=== PATIENT | male | born 1975 | race Caucasian/White ===

== ENCOUNTER 2020-08-25 09:50 | Outpatient (REF) | payer MEDICARE, MEDICAID, OTHER, SELFPAY ==
--- NOTE | 2020-08-25 | US_ITS ---
EXAMINATION: US ABDOMEN COMPLETE CLINICAL INFORMATION: Fatty liver. COMPARISON: Ultrasound abdomen complete 08/08/2017. Renal ultrasound 03/13/2013. TECHNIQUE: Real-time imaging of the abdominal viscera. FINDINGS: PANCREAS: Slightly heterogenous echotexture with no focal enlargement or mass seen. ABDOMINAL AORTA: The proximal, mid, and distal segments are normal in caliber. INFERIOR VENA CAVA: Visualized portions are normal. LIVER: There is mild increased liver echogenicity but normal size and normal contour. There are areas of focal fatty sparing. No focal hepatic lesion. There is no intrahepatic biliary duct dilatation seen. GALLBLADDER: Gallbladder wall thickness measures 0.5 cm. The gallbladder is contracted. Multiple mobile gallstones and echogenic bile are present. There are echogenic calcifications within the gallbladder wall. No evidence of pericholecystic fluid. COMMON BILE DUCT: Normal in caliber measuring 0.3 cm in diameter. RIGHT KIDNEY: Normal. No hydronephrosis. No renal calculi or focal parenchymal lesions. The kidney measures 12.4 cm in maximum dimension. LEFT KIDNEY: Normal. No hydronephrosis. No renal calculi or focal parenchymal lesions. The kidney measures 12.5 cm in maximum dimension. SPLEEN: Normal. The spleen measures 10.7 cm in maximum dimension. FREE FLUID: None. US/US abdomen complete IMPRESSION: 1. The gallbladder is contracted with echogenic stones and mild wall thickening. There are multiple calcifications seen in the gallbladder wall. Similar findings were seen on the previous ultrasound abdomen exam 08/08/2017. 2. Mild hepatic steatosis with areas of focal fatty sparing. 3. The rest of the abdominal ultrasound is unremarkable.
[2020-08-25 11:25] LABS: Hematocrit 44.9 % (42-52); Hemoglobin 15.4 g/dl (14.0-18.0); Mean Corpuscular HGB Conc 34.3 g/dl (31.0-36.0); Mean Corpuscular Hemoglobin 30.7 pg (27.0-33.0); Mean Corpuscular Volume 89.6 fL (80-98); Mean Platelet Volume 11.3 fL (9.4-12.4); Platelet Count 234 X10*3/uL (160-400); Red Blood Count 5.01 X10*6/uL (4.60-5.80); Red Cell Distribution Width 12.4 % (11.0-16.0); White Blood Count 9.9 X10*3/uL (4.8-10.8)
[2020-08-25 11:54] LABS: Alanine Aminotransferase 62 U/L (0-40); Albumin Level 4.9 g/dL (3.5-5.0); Alkaline Phosphatase 58 U/L (39-117); Anion Gap 13 (12-20); Aspartate Amino Transferase 61 U/L (5-37); Bilirubin Direct 0.3 mg/dL (0.0-0.5); Bilirubin Total 0.9 mg/dL (0.0-1.0); Blood Urea Nitrogen 24 mg/dL (9-16); Calcium 9.6 mg/dL (8.4-10.2); Carbon Dioxide 27 mmol/L (22-29); Chloride 102 mmol/L (96-108); Cholesterol 228 mg/dL; Estimated Glomerular Filt Rate > 60; Glucose Fasting 111 mg/dL (60-99); HDL Cholesterol 35 mg/dL; LDL Cholesterol Calculated 142 mg/dl; Potassium 4.3 mmol/l (3.3-5.1); Sodium 138 mmol/L (135-145); Triglycerides 257 mg/dL
[2020-08-25 12:04] LABS: ~HepC Num1 0.08 S/CO (0.00-0.79); ~Hepatitis C Antibody Nonreactive (Nonreactive)
[2020-08-25 12:06] LABS: HBS Num1 2.11 mIU/mL (0-7.99); HBsAGNum1 0.19 S/CO (0.00-0.99); HIV AB/AG Nonreactive (Nonreactive); Hepatitis B Surface Antigen Negative (Negative); ~HepC Num1 0.07 S/CO (0.00-0.79); ~Hepatitis B Surface Antibody NONREACTIVE (Nonreactive); ~Hepatitis C Antibody Nonreactive (Nonreactive)
[2020-08-25 12:08] LABS: Free T4 (Free Thyroxine) 0.98 ng/dL (0.71-1.85); Thyroid Stimulating Hormone 1.02 uIU/mL (0.32-4.0); Vitamin D 25-OH Total 79.5 ng/mL (>30)
[2020-08-25 12:09] LABS: Estimated Average Glucose 108 mg/dL; Hemoglobin A1c % 5.4 %
[2020-08-25 12:10] LABS: Syphilis Screen Nonreactive (Nonreactive)
[2020-08-27 10:57] LABS: Alpha Fetoprotein 2.2 ng/mL (<6.1)
== END 2020-08-25 09:51 | disposition home or self-care (01) ==
LOC: HO.HMGCX 09:50
PROVIDERS: PCP Family Medicine; Visit Provider Family Medicine
DX: Z01.84 Encounter for antibody response examination (principal); Z11.3 Encounter for screening for infections with a predominantly sexual mode of transmission; Z11.4 Encounter for screening for human immunodeficiency virus [HIV]; K58.9 Irritable bowel syndrome, unspecified; K76.0 Fatty (change of) liver, not elsewhere classified
CPT/HCPCS: 36415; 76700; 80048; 80061; 80076; 82105; 82306; 83036; 84439; 84443; 85027; 86706; 86780; 86803; 87340; 87389

== ENCOUNTER 2020-10-11 14:23 | Outpatient (REF) | payer MEDICARE, MEDICAID, OTHER, SELFPAY ==
[2020-10-13 09:02] LABS: C. trachomatis RNA TMA NOT DETECTED (NOT DETECTED); N. gonorrhoeae RNA TMA NOT DETECTED (NOT DETECTED)
== END 2020-10-11 14:24 | disposition home or self-care (01) ==
LOC: HO.LNP 14:23
PROVIDERS: Visit Provider Family Medicine
DX: Z11.3 Encounter for screening for infections with a predominantly sexual mode of transmission (principal); Z68.41 Body mass index [BMI] 40.0-44.9, adult
CPT/HCPCS: 87491; 87591

== ENCOUNTER 2022-07-13 14:00 | Outpatient (RCR) | payer MEDICARE, MEDICAID, OTHER, SELFPAY ==
--- NOTE | 2022-07-25 07:47 | HO.PHPIOP ---
On 07/14/2022,this mortgage loan underwriter met with Pt for an intake assessment for [facility],it was determined that the Pt was not appropriate for [facility] level of care at this time,Pt stated he doesn't want to be here and that he was planning to go up to [place] to see his former spouse. This mortgage loan underwriter walked Pt out of the building. this mortgage loan underwriter was informed that PT returned and was sitting inside the building,his niece was also present,the Pt was becoming aggressive and stated that he was at a bar prior to coming to [facility]. The [facility] program nurse and prescriber intervened recommending that Pt go to the ED at [facility] for a psychiatric evaluation, this mortgage loan underwriter contacted security to inform them that this individual may be going to the ED and of his behavior. This mortgage loan underwriter was informed that the Pt ran into the [facility],this was the last contact [facility] had with this Pt.
== END 2022-07-14 23:59 | disposition home or self-care (01) ==
LOC: HO.PHPA 14:00
PROVIDERS: Visit Provider Psychiatry & Neurology Psychiatry
DX: F31.9 Bipolar disorder, unspecified (principal)

== ENCOUNTER 2022-07-23 10:16 | Emergency (ER) | payer MEDICARE, MEDICAID, OTHER, SELFPAY ==
--- NOTE | 2022-07-23 10:26 | PC.NURSE ---
SIGNED IN AND IMMEDIATELY LEFT AND WALKED DOWN THE STREET, BROTHER REPORTS SEVERAL WEEKS OF YVETTE, HX OF THE SAME IN PAST YEARS, DENIES CURRENT SI/HI BUT CONCERNED FOR HIS SAFETY, BROTHER ENCOURAGED TO CONVINCE HIM TO COME BACK AND IF HE CANNOT THEN TO CALL [facility]
--- OUTSIDE RECORDS SUMMARY | 2022-07-23 10:58 | XMS_ITS ---
:1975 Author Organization [facility] Address [address] [place] [address] Care Team Providers Name Role Phone Kei Thakkar Unavailable Unavailable PROBLEMS Type Condition ICD9-CM Code ESZ65-XC Code Onset Condition SNO MED Code Dates Status Problem Diarrhea R19.7 Active 09074596 Problem Gallstones K80.20 Active 355771763 Problem Elevated liver R74.8 Active 40245 4006 enzymes ALLERGIES No Known Allergies ENCOUNTERS Encounter Location Date Diagnosis [place] [address], [facility] [address] [place] [phone] [place] [address], [facility] [address] [place] [phone] [place] [address], Di arrhea R19.7 ; [facility] [address] [place], [place] Gallstones K80.2 0 and [phone] Elevated liver e nzymes R74.[address] [place] [address], [facility] [address] [place] [phone] IMMUNIZATIONS No Known Immunizations SOCIAL HISTORY Qualifiers Date Current Smoker REASON FOR REFERRAL FUNCTIONAL STATUS PLAN OF CARE Activity Details Follow Up prn Reason: Pending Test LIVER PROFILE Pending Test IRON + IBC (FE) Pending Test FERRITIN Pending Test CRP Pending Test CBC w DIFF Pending Test SED RATE (ESR) Pending Test STOOL WBC Pending Test [id number] (A1A) Pending Test CERULOPLASMIN Pending Test CELIAC PANEL #10 Pending Test MITOCHONDRIAL AB Pending Test SMOOTH MUSCLE ANTIBODIES Pending Test FLUOR. ANTINUCLEAR AB SCREEN (ALKA) Pending Test CALPROTECTIN, STOOL Future/Pending Procedure COLONOSCOPY 20201020 VITAL SIGNS Weight 217 lbs 2020-10-20 Height 61 in 2020-10-20 BMI 41.00 kg/m2 2020-10-20 Temperature 97.5 degrees Fahrenheit 2020-10-20 Blood pressure systolic 000 mm Hg 2020-10-20 Blood pressure diastolic 00 mm Hg 2020-10-20 MEDICATIONS Medication Instructions Dosage Frequency Start Date End Date Duration S tatus Magnesium Active Tylenol Active Vitamin C Active Vitamin D Active clonazePAM Active Iodine Active Cod Liver Oil Active PROCEDURES Procedure Date Ordered Result Body Site BP SCR PRFRM RCMDD DEFIND SCR INTVL Oct 20, 2020 TOBACCO NON-USER Oct 20, 2020 DOC MEDS VERIFIED W/PT OR RE Oct 20, 2020 RESULTS No Results REASON FOR VISIT diarrhea, cancelled procedure, COVID QUES. Insurance Providers [facility] Health Member Patient Patient Patient Patient Patient Subscriber Subscriber Subscriber Group Insurance Plan Plan Plan Plan ID Relationship Address Phone Name Date of ID Name Date of No Type Insurance Insurance Insurance Coverage to Subscriber Address Phone Name Dates MEDICAID [address] MEDICAID self NATHANIE 101 [id number] OF [place] [id number] OF [place] [facility] [address] [facility] [address] MEDICARE [address] MEDICARE self NATHANIE 101 [id number] OF [place] [address] OF [place] Kristyn [facility] [id number]
== END 2022-07-23 11:04 | disposition left against medical advice (07) ==
PROVIDERS: Emergency Provider Emergency Medicine; PCP Family Medicine
DX: Z91.14 Patient's other noncompliance with medication regimen (principal)

== ENCOUNTER 2022-10-10 02:14 | Emergency (ER) | payer MEDICARE, MEDICAID, OTHER, SELFPAY ==
--- NOTE | ~2022-10-10 | XR_ITS ---
EXAMINATION: XR RIBS, RIGHT CLINICAL INFORMATION: Fall onto right side. Chest pain. COMPARISON: 06/05/2018 TECHNIQUE: 3 views of the right ribs were obtained. PA view of the chest. FINDINGS: Lungs are clear. No consolidation, pneumothorax, or pleural effusion. The cardiomediastinal silhouette and pulmonary vasculature are normal. Osseous structures are unremarkable. Ribs are intact. No fractures are identified. XR/XR ribs RT min 3V w CXR1V IMPRESSION: Clear lungs. No focal right rib abnormality.
[2022-10-10 02:22] VITALS: BP 149/84; PULSE 97; RESP 18; TEMP 36.6; O2SAT 98; BMI 52.0
[2022-10-10] MEDS: Fluorescein Sodium STRIP 1 STRIP EYE-BOTH (02:45)
--- NOTE | 2022-10-10 03:06 | ED.EYEPROB ---
HPI - Eye Problem General Chief complaint: Eye Problems Stated complaint: eye pain Time Seen by Provider: 10/10/22 02:32 Source: patient Mode of arrival: ambulatory Limitations: no limitations History of Present Illness HPI Narrative: 47-year-old male came in for evaluation of left eye pain and redness with discharge since yesterday. Patient stated that he has been using a new lotion apply to his face and he think that he might contracted a chemical irritation of his both eyes and causing his symptoms. Patient stated that a month ago he had a mechanical fall hurting his right side of his chest it has been having right-sided chest pain on and off feels like a spasm. No SOB, no coughing. Related Data Previous Rx's Medication Instructions Recorded amoxicillin 875 mg-potassium 1 tab PO BID #14 tabs 10/10/22 clavulanate 125 mg tablet cyclobenzaprine 10 mg tablet 10 mg PO TID PRN muscle spasm #14 10/10/22 tabs erythromycin 5 mg/gram (0.5 %) eye 0.5 inch ophthalmic (eye) QID #50 10/10/22 ointment grams Allergies Allergy/AdvReac Type Severity Reaction Status Date / Time chlorpromazine Allergy Severe RASH Unverified 06/17/20 15:17 [From THORAZINE] risperidone [From Risperdal] Allergy Severe ANAPHYLAXIS Unverified 06/17/20 15:17 diphenhydramine AdvReac Unknown SPACY Unverified 06/17/20 15:17 [From BENADRYL] Review of Systems Review of Systems: All other systems are reviewed and are negative Constitutional: Reports as per HPI and Reports no additional constitutional complaints Eyes: Reports as per HPI and Reports no additional eye complaints Reports system reviewed and no additional complaints, except as documented Cardiovascular: Reports as per HPI and Reports no additional cardiovascular complaints Respiratory: Reports as per HPI and Reports no additional respiratory complaints Gastrointestinal: Reports as per HPI and Reports no additional gastrointestinal complaints Genitourinary: Reports no additional female genitourinary complaints Musculoskeletal: Reports no additional musculoskeletal complaints Skin/Breast: Reports system reviewed and no additional complaints, except as docu Psychiatric: Reports no additional psychiatric complaints Endocrine: Reports no additional endocrine complaints Hematologic/Lymphatic: Reports no additional hematologic/lymphatic complaints Allergic/Immunologic: Reports no additional allergic/immunologic complaints Reports system reviewed and no additional complaints, except as documented and Reports Abnormal speech present PMFSH Past Medical History Medical History Anxiety Fatty liver Hx of diarrhea Hx of gallstones Hypertension Salivary gland cancer Surgical History H/O myringotomy Physical Exam Vital Signs: Vital Signs: Last Vital Signs Temp 97.8 F 10/10/22 02:22 Pulse 97 10/10/22 02:22 Resp 18 10/10/22 02:22 BP 149/84 H 10/10/22 02:22 Pulse Ox 98 10/10/22 02:22 O2 Del Method 10/10/22 02:22 BMI result Body Mass Index 52.0 Vital signs have been reviewed as appeared to be correct. Blood pressure normal. Heart rate normal. Respiration rate normal. Temperature normal. Oxygen saturation normal. Appearance: Alert. Oriented X3. No acute distress. Head: Normal external exam. Normocephalic. Atraumatic. No [place] signs noted. No raccoon eyes noted Eyes: Visual acuity 20/25 right, 20/25 left, PERRLA. EOMI. Swelling of upper and lower eyelid bilaterally left more than right, with significant conjunctiva injection and swelling bilaterally, no corneal or scleral fluorescein uptake bilaterally, IOP right 18 in left 19. ENT: TM's Normal. Pharynx normal. Uvula midline. Moist mucous membranes. No trismus noted. No drooling noted. No muffled voice noted. Neck: Normal inspection. Neck supple. FROM. No adenopathy. Thyroid Normal. No meningeal signs. No neck mass noted. CVS: Normal heart rate and rhythm. Heart sound normal. No murmurs noted. Pulses normal throughout. Respiratory: No respiratory distress. Painless inspiration. Breath sounds normal. No wheezes/rales/rhonchi noted. Chest nontender. No accessory muscle usage noted or decreased air movement noted. Abdomen: Soft and nontender. Bowel sounds normal in all 4 quadrants. No distention noted. No organomegaly noted. No visible injury noted. Back: No CVA tenderness. Full range of motion noted. Skin: Skin warm and dry. Normal skin color. Normal skin turgor. No rashes/lesions/lacerations noted. Extremities: No lower extremity edema. Extremities exhibit normal range of motion. Extremities nontender. Neuro: Oriented X 3. Cranial nerve exam: II-XII are grossly intact No motor deficit. No sensory deficit. Reflexes normal. Course Course Course Narrative: 47-year-old male presented with bilateral chemical conjunctivitis with blepharitis likely secondary to new lotion that the patient using on his face patient was instructed not to use the lotion. Will start the patient on erythromycin eye ointment and also will give oral Augmentin for the blepharitis. A previous mechanical fall with right-sided chest pain no evidence of trauma or injury on x-ray. Will start the patient on Flexeril. Medications Administered Discontinued Medications Generic Name Dose Route Start Last Admin Trade Name Freq PRN Reason Stop Dose Admin Fluorescein Sodium 1 strip 10/10/22 02:32 10/10/22 02:45 Fluorescein Sodium Strip EYE-BOTH 10/10/22 02:33 1 strip ONCE ONE Administration Medical Decision Making Differential Diagnosis Differential Diagnoses: The differential diagnosis associated with the presentation includes ( bacterial conjunctivitis, chemical conjunctivitis, foreign body, corneal abrasion, blepharitis, chest wall contusion, rib fracture.) Independent Interpretation I performed an independent interpretation of an: Plain X-Ray (No rib fracture, unremarkable lung x-ray.) Radiology Impression Discussion of test interpretation with radiology: I have reviewed the radiologist's reading. Discharge Plan Discharge Clinical Impression: Bacterial conjunctivitis, Chest wall contusion Patient Disposition: Home, Self-Care Instructions: Contusion in Adults (ED), Conjunctivitis (ED) Prescriptions: New erythromycin 5 mg/gram (0.5 %) ointment 0.5 inch ophthalmic (eye) QID Qty: 50 0RF amoxicillin-pot clavulanate 875-125 mg tablet 1 tab PO BID Qty: 14 0RF cyclobenzaprine 10 mg tablet 10 mg PO TID PRN (Reason: muscle spasm) Qty: 14 0RF Referrals: Jason Valdivia [Physician] -
--- OUTSIDE RECORDS SUMMARY | 2022-10-10 03:19 | XMS_ITS ---
:1975 Author Organization [facility] Address [address] [place] [address] Care Team Providers Name Role Phone Kei Thakkar Unavailable Unavailable PROBLEMS Type Condition ICD9-CM Code PCN83-XB Code Onset Condition SNO MED Code Dates Status Problem Diarrhea R19.7 Active 16012159 Problem Gallstones K80.20 Active 945635002 Problem Elevated liver R74.8 Active 45374 4006 enzymes ALLERGIES No Known Allergies ENCOUNTERS Encounter Location Date Diagnosis [place] [address], [facility] [address] [place] [phone] [place] [address], [facility] [address] [place] [phone] [place] [address], Di arrhea R19.7 ; [facility] [address] [place], [place] Gallstones K80.2 0 and [phone] Elevated liver e nzymes R74.8 [place] [address], [facility] [address] [place] [phone] IMMUNIZATIONS No Known Immunizations SOCIAL HISTORY Qualifiers Date Current Smoker REASON FOR REFERRAL FUNCTIONAL STATUS PLAN OF CARE Activity Details Follow Up prn Reason: Pending Test LIVER PROFILE Pending Test IRON + IBC (FE) Pending Test FERRITIN Pending Test CRP Pending Test CBC w DIFF Pending Test SED RATE (ESR) Pending Test STOOL WBC Pending Test [id number] (A1A) Pending Test CERULOPLASMIN Pending Test CELIAC [...] diarrhea, cancelled procedure, COVID QUES. Insurance Providers [facility] Health Member Patient Patient Patient Patient Patient Subscriber Subscriber Subscriber Group Insurance Plan Plan Plan Plan ID Relationship Address Phone Name Date of ID Name Date of No Type Insurance Insurance Insurance Coverage to Subscriber Address Phone Name Dates MEDICARE [address] MEDICARE self NATHANIE 101 [id number] OF [place] [address] OF [place] Kristyn [facility] [address] MEDICAID [address] MEDICAID self NATHANIE 101 [id number] OF [facility] [address] OF [place] Kristyn JIMYANA [facility] [phone]
[2022-10-10] MEDS: Amoxicillin/Potassium Clav 875 MG TABLET PO (03:20)
[2022-10-10] MEDS: Erythromycin Base 0.5% Oph Oin 1 GM TUBE 1 CM EYE-BOTH (03:20)
[2022-10-10] MEDS: Cyclobenzaprine HCl 10 MG TABLET PO (03:20)
[2022-10-10] MEDS: Tetracaine HCl/PF 0.5% Oph Sol 4 ML DROPS 3 DROP EYE-BOTH (03:20)
== END 2022-10-10 03:52 | disposition home or self-care (01) ==
PROVIDERS: Emergency Provider Emergency Medicine; PCP Family Medicine
DX: H10.89 Other conjunctivitis (principal); H01.00B Unspecified blepharitis left eye, upper and lower eyelids; H01.00A Unspecified blepharitis right eye, upper and lower eyelids; S20.211D Contusion of right front wall of thorax, subsequent encounter; W19.XXXD Unspecified fall, subsequent encounter
CPT/HCPCS: 71101; 99283; 99284

== ENCOUNTER 2022-10-15 11:14 | Emergency (ER) | payer MEDICARE, MEDICAID, SELFPAY ==
--- NOTE | ~2022-10-15 | XR_ITS ---
EXAMINATION: XR RIBS, RIGHT CLINICAL INFORMATION: Injury, pain. COMPARISON: None TECHNIQUE: 3 views of the right ribs were obtained. FINDINGS: The lungs are well-expanded and clear. The heart size and pulmonary vascularity is normal. No gross bony abnormality seen. XR/XR ribs RT min 3V w CXR1V IMPRESSION: Unremarkable chest exam.
[2022-10-15 11:25] VITALS: BP 160/92; PULSE 110; RESP 18; TEMP 37.1; O2SAT 94; BMI 55.7
--- NOTE | 2022-10-15 12:00 | ED.PSYCH ---
HPI - Psych General Chief Complaint: Psychiatric Symptoms Stated Complaint: SEC 12, CRISIS ,CALM/COOP PER EMS Time Seen by Provider: 10/15/22 11:32 Source: patient and EMS Mode of arrival: EMS Limitations: no limitations History of Present Illness HPI Narrative: 47-year-old male with a history of depression, anxiety, hypertension, ? Mood disorder who presents on a Section 12 from crisis in the community. Per Section patient has not been sleeping, walking the streets at night, delusional, agitated, off his medication. Patient tells me that he is not taking any of his medications because he is going the herbal route. He tells me that he has no suicidal thoughts, homicidal ideations, hallucinations. He denies substance use. Patient is complaining of right rib pain. Patient reports several days ago he a trip and fall hitting his right ribs on a rock. No hitting of the head or loss of consciousness. Related Data Previous Rx's Medication Instructions Recorded amoxicillin 875 mg-potassium 1 tab PO BID #14 tabs 10/10/22 clavulanate 125 mg tablet cyclobenzaprine 10 mg tablet 10 mg PO TID PRN muscle spasm #14 10/10/22 tabs erythromycin 5 mg/gram (0.5 %) eye 0.5 inch ophthalmic (eye) QID #50 10/10/22 ointment grams Allergies Allergy/AdvReac Type Severity Reaction Status Date / Time chlorpromazine Allergy Severe RASH Unverified 06/17/20 15:17 [From THORAZINE] risperidone [From Risperdal] Allergy Severe ANAPHYLAXIS Unverified 06/17/20 15:17 diphenhydramine AdvReac Unknown SPACY Unverified 06/17/20 15:17 [From BENADRYL] Review of Systems Review of Systems: Yes all other systems are reviewed and are negative Constitutional: Constitutional: Reports no additional constitutional complaints, Denies body ache(s), Denies chills, Denies fever(s), Denies headache(s) and Denies weakness Eyes: Eyes: Reports no additional eye complaints and Denies change in vision ENT: Reports system reviewed and no additional complaints, except as documented, Denies dizziness, Denies headache(s), Denies nasal congestion, Denies nasal discharge and Denies neck pain Cardiovascular: Cardiovascular: Reports no additional cardiovascular complaints, Denies chest pain, Denies leg edema and Denies dyspnea Respiratory: Respiratory: Reports no additional respiratory complaints, Denies cough and Denies dyspnea Gastrointestinal: Gastrointestinal: Reports no additional gastrointestinal complaints, Denies abdominal pain, Denies diarrhea, Denies nausea and Denies vomiting Genitourinary: Genitourinary: Denies urinary incontinence Musculoskeletal: Musculoskeletal: Reports no additional musculoskeletal complaints, Denies back pain, Denies arthralgias, Denies joint swelling, Denies neck pain, Denies numbness and Denies tingling Integumentary/Breasts: Skin/Breast: Reports system reviewed and no additional complaints, except as docu and Denies rash Neurologic: Reports system reviewed and no additional complaints, except as documented, Denies Abnormal speech present, Denies dizziness, Denies headache(s), Denies numbness, Denies tingling and Denies weakness PMFSH Past Medical History Attestation statement: The following information was validated with the patient. Source: old records reviewed and nursing notes reviewed Medical History Anxiety Fatty liver Hx of diarrhea Hx of gallstones Hypertension Salivary gland cancer Surgical History H/O myringotomy Social History Social History Advance Directives: No Advance Directives Information Provided: Yes Physical Exam Vital Signs: Vital Signs: Last Vital Signs Temp 98.8 F 10/15/22 11:25 Pulse 110 H 10/15/22 11:25 Resp 18 10/15/22 11:25 BP 160/92 H 10/15/22 11:25 Pulse Ox 94 10/15/22 11:25 O2 Del Method 10/15/22 11:25 BMI result Body Mass Index 55.7 Const: General: cooperative, healthy appearing, comfortable and no acute distress Orientation/consciousness: patient oriented x3 Limitations: no limitations HEENT: Head: Yes normal to inspection Ears: hearing grossly normal bilaterally General nose exam: Normal external nose present Face and sinus: Yes normal facial exam Mouth: Normal oral and palatal mucosa present Throat: Yes posterior oropharynx normal Eyes: General: appearance normal, both eyes and all related structures Pupils: Equal, round and reactive pupils present Neck: Neck: Yes normal visual inspection Chest: Chest palpation & inspection: normal inspection of the chest and tenderness (right chest wall tenderness to palp) Resp: Effort & Inspection: normal respiratory effort Auscultation: clear to auscultation bilaterally Cardio: Rate: regular rate Rhythm: regular rhythm Peripheral pulses: Peripheral pulses 2+ throughout GI: Inspection: Yes normal to inspection Palpation (GI): Soft to palpation and nontender Auscultation: normal bowel sounds Back/Spine/Pelvis: Thoracic/Lumbar Spine: thoracic and lumbar spine normal to inspection Skin: General skin exam: no rashes or lesions noted Neuro: General: patient oriented x3, no focal motor deficits and normal sensation to monofilament Cranial nerves: Yes Equal, round and reactive pupils present Cognition (Neuro): normal cognition Speech: No Abnormal speech present Gait exam (Neuro): Normal gait present Motor exam (neuro): 5/5 motor strength present throughout Extrem: General: Yes normal to inspection Course Course Course Narrative: Patient placed in physician observation pending disposition. Patient is pending a crisis consultation. Medical Decision Making Medical Decision Making [facility] Narrative: 47-year-old male here on a Section 12 for behavior change. Patient complaining of right rib pain from a fall No concern for ingestion Will obtain x-rays of ribs, labs, drug screen. Patient refusing COVID screen. States it is against his christianity. Once medically cleared will need crisis consultation Differential Diagnosis Differential Diagnoses: The differential diagnosis associated with the presentation includes Mood disorder Lab Data [facility] Lab Attestation statement: I reviewed the patient's lab results. 10/15/22 16:03 10/15/22 16:03 Labs: Lab Results 10/15/22 10/15/22 Range/Units 16:03 16:03 WBC 9.5 (4.8-10.8) X10*3/uL RBC 5.18 (4.60-5.80) X10*6/uL Hgb 15.2 (14.0-18.0) g/dl Hct 45.2 (42.0-52.0) % MCV 87.3 (80.0-98.0) fL MCH 29.3 (27.0-33.0) pg MCHC 33.6 (31.0-36.0) g/dl RDW 13.2 (11.0-16.0) % Plt Count 251 (160-400) X10*3/uL MPV 10.0 (9.4-12.4) fL Immature Gran % (Auto) 0.5 H (0.0-0.4) % Neut % (Auto) 56.2 (45-73) % Lymph % (Auto) 34.8 (20-40) % Glynn % (Auto) 6.1 (2-11) % Eos % (Auto) 2.1 (0-4) % Baso % (Auto) 0.3 (0-2) % Lymph # (Auto) 3.3 (1.2-4.9) X10*3/uL Glynn # (Auto) 0.6 (0.1-1.2) X10*3/uL Eos # (Auto) 0.2 (0.0-0.4) X10*3/uL Baso # (Auto) 0.0 (0.0-0.2) X10*3/uL Abs Immat Gran (auto) 0.05 H (0.00-0.03) X10*3/uL Absolute Neuts (auto) 5.3 (2.0-8.3) x10*3/uL Absolute Nucleated RBC 0.000 (0.0-0.012) X10*3/uL Nucleated RBC % (auto) 0.0 (0.0-0.2) /100WBC Sodium 141 (135-145) mmol/L Potassium 3.6 (3.3-5.1) mmol/L Chloride 102 (96-108) mmol/L Carbon Dioxide 26 (22-29) mmol/L Anion Gap 17 (12-20) BUN 16 (9-16) mg/dL Creatinine 0.84 (0.5-1.4) mg/dL Estim Creat Clear Calc 133.3 Estimated GFR > 60 Random Glucose 104 (60-115) mg/dL Calcium 9.5 (8.4-10.2) mg/dL Total Bilirubin 0.3 (0.0-1.0) mg/dL Direct Bilirubin < 0.2 (0.0-0.5) mg/dL AST 28 (5-37) U/L ALT 43 H (0-40) U/L Alkaline Phosphatase 64 (39-117) U/L Total Protein 7.6 (6.5-8.0) g/dL Albumin 4.3 (3.5-5.0) g/dL Ethyl Alcohol < 10 mg/dL Independent Interpretation I performed an independent interpretation of an: Plain X-Ray (Independently reviewed the x-rays which show no fractures) Radiology Impression Discussion of test interpretation with radiology: I have reviewed the radiologist's reading. Radiologist Impression: XAMINATION: XR RIBS, RIGHT CLINICAL INFORMATION: Injury, pain. COMPARISON: None TECHNIQUE: 3 views of the right ribs were obtained. FINDINGS: The lungs are well-expanded and clear. The heart size and pulmonary vascularity is normal. No gross bony abnormality seen. XR/XR ribs RT min 3V w CXR1V IMPRESSION: Unremarkable chest exam. ? Discharge Plan Discharge Clinical Impression: Behavioral change Patient Disposition: Still a Patient Prescriptions: No Action erythromycin 5 mg/gram (0.5 %) ointment 0.5 inch ophthalmic (eye) QID Qty: 50 0RF amoxicillin-pot clavulanate 875-125 mg tablet 1 tab PO BID Qty: 14 0RF cyclobenzaprine 10 mg tablet 10 mg PO TID PRN (Reason: muscle spasm) Qty: 14 0RF Interventions: [place]-Suicide Risk Severity Scale Last Done: 10/15/22 11:44
[2022-10-15 16:07] LABS: MANUAL DIFF FLAG NO
[2022-10-15 16:09] LABS: Basophils Percent Auto 0.3 % (0-2); Eosinophils Absolute Auto 0.2 X10*3/uL (0.0-0.4); Eosinophils Percent Auto 2.1 % (0-4); Hematocrit 45.2 % (42.0-52.0); Hemoglobin 15.2 g/dl (14.0-18.0); Imm Gran Abs Auto 0.05 X10*3/uL (0.00-0.03); Imm Gran Pct Auto 0.5 % (0.0-0.4); Lymphocytes Absolute Auto 3.3 X10*3/uL (1.2-4.9); Lymphocytes Percent Auto 34.8 % (20-40); Mean Corpuscular HGB Conc 33.6 g/dl (31.0-36.0); Mean Corpuscular Hemoglobin 29.3 pg (27.0-33.0); Mean Corpuscular Volume 87.3 fL (80.0-98.0); Monocytes Absolute Auto 0.6 X10*3/uL (0.1-1.2); Monocytes Percent Auto 6.1 % (2-11); Neutrophils Absolute Auto 5.3 x10*3/uL (2.0-8.3); Neutrophils Percent Auto 56.2 % (45-73); Platelet Count 251 X10*3/uL (160-400); Red Blood Count 5.18 X10*6/uL (4.60-5.80); Red Cell Distribution Width 13.2 % (11.0-16.0); White Blood Count 9.5 X10*3/uL (4.8-10.8)
[2022-10-15 16:33] LABS: Alanine Aminotransferase 43 U/L (0-40); Albumin Level 4.3 g/dL (3.5-5.0); Alkaline Phosphatase 64 U/L (39-117); Anion Gap 17 (12-20); Aspartate Amino Transferase 28 U/L (5-37); Bilirubin Direct < 0.2 mg/dL (0.0-0.5); Bilirubin Total 0.3 mg/dL (0.0-1.0); Blood Urea Nitrogen 16 mg/dL (9-16); Calcium 9.5 mg/dL (8.4-10.2); Carbon Dioxide 26 mmol/L (22-29); Chloride 102 mmol/L (96-108); Creatinine Clr Calc Pharmacy 133.3; Estimated Glomerular Filt Rate > 60; Ethanol < 10 mg/dL; Glucose Random 104 mg/dL (60-115); Potassium 3.6 mmol/L (3.3-5.1); Sodium 141 mmol/L (135-145); Total Protein 7.6 g/dL (6.5-8.0)
[2022-10-15 18:21] LABS: Amphetamine Screen Urine Not Detected (Not Detect); Barbiturates, Urine Not Detected (Not Detect); Benzodiazepines Screen Urine Not Detected (Not Detect); Cannabinoid Screen Urine POSITIVE (Not Detect); Cocaine Screen Urine Not Detected (Not Detect); Fentanyl, urine Not Detected (Not Detect); Opiate Screen Urine Not Detected (Not Detect); Phencyclidine Screen Urine Not Detected (Not Detect)
[2022-10-15 23:20] VITALS: RESP 22
[2022-10-15] MEDS: LORazepam 2 MG/ML VIAL IM (23:20)
[2022-10-15] MEDS: Ziprasidone Mesylate 20 MG VIAL IM (23:20)
[2022-10-15] MEDS: Haloperidol Lactate 5 MG/ML VIAL IM (23:20)
--- NOTE | 2022-10-15 23:32 | PC.NURSE ---
Patient go extremely agitated and threatening to staff member when he was told that patient needs to follow quarantine protocol because he refused covid test, deescalation attempts were made but unsuccessful, patient's thought content delusional paranoid, provider notified/ordered Ativan 2 mg IM, Haldol 5 mg IM and Geodon 20 mg IM/administered as ordered at 2230/patient compliant/pending effect, patient is currently on 1:1 observation per restraint protocol, will continue to monitor.,
[2022-10-15 23:35] VITALS: RESP 20
[2022-10-15 23:50] VITALS: RESP 18
[2022-10-16 00:05] VITALS: RESP 18
[2022-10-16 00:20] VITALS: RESP 16
[2022-10-16 03:44] VITALS: BP 140/78; PULSE 90; RESP 14; TEMP 36.8; O2SAT 93
--- NOTE | 2022-10-16 06:02 | PC.NURSE ---
Patient S/P chemical restraint, slept through the night, no distress observed/reported, behavior argumentative/verbally abusive/confrontational over legality, refused COVID swab for religion reason, disposition per [facility] is section 12 inpatient bed search, med rec completed/pending provider's approval, will continue to monitor.
--- NOTE | 2022-10-16 08:00 | PC.NURSE ---
Report received from Mo CAIN, per report pt received IM medications on the overnight shift, pt appears to be sleeping at this time, resp reg and even, NAD. Continues to be an inpatient bed search at this time. Per report pt was refusing covid swab on the overnight, paranoid with the belief that the swab would give him covid. Will re-attempt with pt when he awakens.
[2022-10-16 08:36] VITALS: BP 178/103; PULSE 100; RESP 18; TEMP 36.6; O2SAT 95
--- NOTE | 2022-10-16 09:11 | PC.NURSE ---
[facility] at bedside for MSU. Pt appears to be calm and cooperative at this time.
[2022-10-16] MEDS: LORazepam 1 MG TABLET 2 MG PO ×2 (09:24→22:12)
[2022-10-16] MEDS: Erythromycin Base 0.5% Oph Oin 1 GM TUBE 1 CM EYE-BOTH ×4 (09:25→22:12)
[2022-10-16] MEDS: Amoxicillin/Potassium Clav 875 MG TABLET PO ×2 (09:25→22:17)
[2022-10-16] MEDS: hydrOXYzine HCL 50 MG TABLET PO ×3 (09:25→22:11)
[2022-10-16 09:36] VITALS: BP 151/74
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
--- NOTE | 2022-10-16 15:34 | PC.NURSE ---
Pt seen this date for individual OT tx. Pt presents with increased lethargy however receptive to engaging in conversation with this video games storywriter. Per pt he has no recollection of how he came to be admitted to [facility] ED. However reports ongoing family conflict within current living situation. Pt reports using meditation with relaxation breathing techniques as an effective coping strategy. Pt is receptive to sensory item provided.
[2022-10-16] MEDS: Lithium Carbonate 300 MG CAPSULE PO (22:12)
[2022-10-16 22:41] LABS: COVID-19 Test Negative (Negative); IDNOW Serial# 55D5AD1C
[2022-10-17 02:15] VITALS: BP 148/76; PULSE 101; RESP 16; TEMP 36.7; O2SAT 99
--- NOTE | 2022-10-17 05:51 | PC.NURSE ---
Patient really struggled to fall sleep, currently in bed appears sleeping, behavior at base argumentative but non concerning, medication compliant, disposition per [facility] from community is section 12 inpatient bed search, VSS, will continue to monitor.
--- NOTE | 2022-10-17 06:58 | PC.NURSE ---
patient appears to remain asleep at present respirations are even and unlabored patient appears in no distress.
[2022-10-17] MEDS: Lithium Carbonate 300 MG CAPSULE PO ×2 (08:32→14:53)
[2022-10-17] MEDS: Amoxicillin/Potassium Clav 875 MG TABLET PO (08:32)
[2022-10-17] MEDS: hydrOXYzine HCL 50 MG TABLET PO ×2 (08:32→14:53)
[2022-10-17 09:37] VITALS: BP 182/89; PULSE 102; RESP 16; TEMP 36.8; O2SAT 98
--- NOTE | 2022-10-17 11:13 | MHC.CARE ---
[facility] clinician here to reassess patient, plan is to discharge to respite.
[2022-10-17] MEDS: Erythromycin Base 0.5% Oph Oin 1 GM TUBE 1 CM EYE-BOTH (12:20)
== END 2022-10-17 15:06 | disposition home or self-care (01) ==
PROVIDERS: Nurse Practitioner Family; Emergency Provider Emergency Medicine
DX: F33.1 Major depressive disorder, recurrent, moderate (principal); F41.9 Anxiety disorder, unspecified; R07.81 Pleurodynia; Z79.899 Other long term (current) drug therapy; Z20.822 Contact with and (suspected) exposure to COVID-19; Z20.828 Contact with and (suspected) exposure to other viral communicable diseases
CPT/HCPCS: 36415; 71101; 80048; 80076; 80307; 82077; 85025; 87635; 96372; 99285; J2060; J3486

== ENCOUNTER 2023-03-14 11:44 | Outpatient (REF) | payer MEDICARE, MEDICAID, SELFPAY | END 2023-03-14 11:45 | disposition home or self-care (01) | LOC: HO.LNP 11:44 | PROVIDERS: Visit Provider Nurse Practitioner Psychiatric/Mental Health | DX: Z13.89 Encounter for screening for other disorder (principal) ==

== ENCOUNTER 2023-03-15 | Outpatient (REF) | payer MEDICARE, MEDICAID, SELFPAY ==
[2023-03-15 12:25] LABS: Amphetamine Screen Urine Not Detected (Not Detect); Barbiturates, Urine Not Detected (Not Detect); Benzodiazepines Screen Urine Not Detected (Not Detect); Cannabinoid Screen Urine Not Detected (Not Detect); Cocaine Screen Urine Not Detected (Not Detect); Fentanyl, urine Not Detected (Not Detect); Opiate Screen Urine Not Detected (Not Detect); Phencyclidine Screen Urine Not Detected (Not Detect)
== END 2023-03-15 00:01 | disposition home or self-care (01) ==
LOC: HO.LNP
PROVIDERS: Visit Provider Nurse Practitioner Psychiatric/Mental Health
DX: Z13.89 Encounter for screening for other disorder (principal)
CPT/HCPCS: 80307

== ENCOUNTER 2023-03-21 08:18 | Outpatient (REF) | payer MEDICARE, MEDICAID, SELFPAY ==
[2023-03-21 08:30] LABS: MANUAL DIFF FLAG NO
[2023-03-21 09:26] LABS: Lithium 0.84 mmol/L (0.60-1.20)
[2023-03-21 09:28] LABS: Basophils Absolute Auto 0.1 X10*3/uL (0.0-0.2); Basophils Percent Auto 0.7 % (0-2); Eosinophils Absolute Auto 0.3 X10*3/uL (0.0-0.4); Hematocrit 40.9 % (42.0-52.0); Hemoglobin 13.9 g/dl (14.0-18.0); Imm Gran Abs Auto 0.09 X10*3/uL (0.00-0.03); Imm Gran Pct Auto 0.9 % (0.0-0.4); Lymphocytes Absolute Auto 3.1 X10*3/uL (1.2-4.9); Lymphocytes Percent Auto 31.9 % (20-40); Mean Corpuscular Hemoglobin 30.5 pg (27.0-33.0); Mean Corpuscular Volume 89.9 fL (80.0-98.0); Mean Platelet Volume 10.9 fL (9.4-12.4); Monocytes Absolute Auto 0.5 X10*3/uL (0.1-1.2); Monocytes Percent Auto 5.5 % (2-11); Neutrophils Absolute Auto 5.6 x10*3/uL (2.0-8.3); Platelet Count 221 X10*3/uL (160-400); Red Blood Count 4.55 X10*6/uL (4.60-5.80); Red Cell Distribution Width 13.2 % (11.0-16.0); White Blood Count 9.7 X10*3/uL (4.8-10.8)
[2023-03-21 09:42] LABS: Alanine Aminotransferase 35 U/L (0-40); Albumin Level 4.5 g/dL (3.5-5.0); Alkaline Phosphatase 55 U/L (39-117); Anion Gap 14 (12-20); Aspartate Amino Transferase 20 U/L (5-37); Bilirubin Total 0.5 mg/dL (0.0-1.0); Blood Urea Nitrogen 18 mg/dL (9-16); Calcium 9.8 mg/dL (8.4-10.2); Carbon Dioxide 24 mmol/L (22-29); Chloride 105 mmol/L (96-108); Cholesterol 248 mg/dL; Estimated Glomerular Filt Rate > 60; Glucose Random 99 mg/dL (60-115); Potassium 4.3 mmol/L (3.3-5.1); Sodium 139 mmol/L (135-145); Total Protein 7.8 g/dL (6.5-8.0)
[2023-03-21 09:58] LABS: Free T4 (Free Thyroxine) 0.88 ng/dL (0.71-1.85); Thyroid Stimulating Hormone 2.42 uIU/mL (0.32-4.0); Vitamin D 25-OH Total 31.4 ng/mL (>30)
== END 2023-03-21 08:19 | disposition home or self-care (01) ==
LOC: HO.LAB 08:18
PROVIDERS: PCP Family Medicine; Visit Provider Nurse Practitioner Psychiatric/Mental Health
DX: F31.2 Bipolar disorder, current episode manic severe with psychotic features (principal)
CPT/HCPCS: 36415; 80053; 80178; 82306; 82465; 84439; 84443; 85025

== ENCOUNTER 2023-03-28 10:15 | Outpatient (RCR) | payer MEDICARE, MEDICAID, SELFPAY ==
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
[2023-03-14 11:37] VITALS: BP 144/78; PULSE 88; TEMP 36.8
[2023-03-14 11:47] VITALS: BMI 96.6
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
--- NOTE | 2023-03-15 15:30 | HO.PHP ---
Clients case was reviewed and opened today in treatment team.
--- NOTE | 2023-03-19 13:38 | HO.PHP ---
PHP staff faxed the referral form for OP and Psychiatry for Walt Mcwilliams to [facility]. PHP staff is awaiting a scheduled intake.
--- NOTE | 2023-03-20 11:27 | P.PNPSP_ITS ---
Subjective Subjective Date of Service: 03/20/23 Reason For Visit: bipolar,AUD,NICOL Healthcare Proxy: No Guardianship: No Medical Problems Affecting Mental Status: No Interim History: Walt is seen in follow-up. He is engaged in the partial hospital program and is finding it helpful. He has been treated for bipolar disorder and is currently on lithium carbonate 600 mg nightly for the past 3 months, hydroxyzine and mirtazapine 7.5 mg. He was started on these when he was incarcerated. He states that the lithium has been helpful even though I believe his lithium level is probably below therapeutic range. He is due to do some blood work including a lithium level. Questions about hydroxyzine discussed. No complaints or side effects. He will continue the current regimen of medications. Outpatient refe rral is being made. No changes were made today Medication Compliance: Yes Side effects from medications: No Attending Groups: Yes Review of Systems Acute medical concerns: No Review of Systems Review of Systems Yes all other systems are reviewed and are negative Mental Status Exam Mental Status Exam Narrative: In today's visit he is alert, oriented and pleasant. Normal speech. Good eye contact. Affect is appropriate and varied. No signs of hypomania. No signs of psychosis. No delusions. Cognitively he is intact. Judgment is intact Diagnostics Vital Signs (24Hr): BMI result Body Mass Index 96.6 Assessment & Plan Assessment & Plan (1) Bipolar 1 disorder: Status: Acute Code(s): F31.9 - Bipolar disorder, unspecified Plan Continue partial hospital program. Continue current medications. Proceed with laboratory studies including lithium level. Outpatient referrals to be made Patient educated on: diagnosis, medication risk/benefits and substance abuse Certification I certify that partial hospital treatment is medically necessary due to the symptoms and problems resulting from the patient's mental illness and the failure to treat the patient at the partial hospital level of care would likely result in the patient requiring inpatient psychiatric care which could not be prevented at a less intensive level of care. Total time managing care of this patient today ____ minutes. Discharge Plan Discharge Attending provider: Dick Cardenas Medications: No Action hydroxyzine pamoate 50 mg capsule 1 cap PO BEDTIME lithium carbonate 600 mg Capsule 600 mg PO BEDTIME mirtazapine [Remeron] 15 mg Tablet 7.5 mg PO BEDTIME Rx Instructions: Take 1/2 tablet at HS. hydroxyzine pamoate 25 mg Capsule 25 mg PO DAILY@1200
--- NOTE | 2023-03-22 09:56 | HO.PHP ---
PHP staff emailed Fe from [facility] to follow up regarding Walt receiving OP and med providers through there department. PHP staff is awaiting a response back.
--- NOTE | 2023-03-26 09:31 | HO.PHP ---
PHP staff responded to Fe's email from [facility] regarding services for Walt. [facility] staff also reached out to Fe Via telephone and had left a message. [facility] staff is awaiting a response back.
--- NOTE | 2023-03-26 14:40 | HO.PHP ---
[facility] staff reached out to Dr. Dorcas Wasserman through [facility] regarding the status of Walt's referral due to Fe being on vacation. [facility] staff left a message and is awaiting a return phone call.
--- NOTE | 2023-03-26 14:41 | HO.PHP ---
[facility] staff received a return phone call from Dr. Wasserman, in which she explored with the clinician Walt's insurance. [facility] staff disclosed he has Medicare and [employer]. Dr. Wasserman informed [facility] staff member that they are not taking medicare clients at this time due to having limited providers who are able to take that insurance. Dr. Wasserman disclosed that she has informed the hospital of this, [facility] staff asked if she had disclosed that to [facility]. Dr. Wasserman mentioned she had. [facility] staff mentioned that she was unaware and she had placed ther referral on March 19, 2023 and never received a call back stating that. [facility] staff mentioned that she will talk with the client about referring else where. Dr. Wasserman was receptive and noted she will further look into it as well to see if there were any changes. [facility] staff was receptive and thanked her for her time. Dr. Wasserman was receptive.
--- NOTE | 2023-03-27 11:35 | HO.PHPPROGNO ---
Subjective Subjective Date of Service: 04/26/23 Reason For Visit: bipolar,AUD,NICOL Interim History: The patient has been participating at the partial hospital program he remains sober feels stable for discharge. Medication Compliance: Yes Side effects from medications: No Review of Systems Acute medical concerns: No Mental Status Exam Mental Status Exam Narrative: Mental Status Exam Narrative: Appearance: Casually dressed Behavior: Cooperative appropriate psychomotor: Within normal limits Speech: Normal volume and prosody Thought proccess logical and goal-directed Thought content: Future oriented no self-harming thoughts some anxiety regarding maintaining sobriety and remaining stable Mood: Mild anxiety noted Affect: Appropriate to mood full affect SI:denies HI:denies VH/AH:none Delusions: None Insight/judgment: Good insight and judgment Memory/cog: Intact Diagnostics Vital Signs (24Hr): BMI result Body Mass Index 96.6 Assessment & Plan Assessment & Plan (1) Bipolar disorder, unspecified: Status: Acute Code(s): F31.9 - Bipolar disorder, unspecified (2) Alcohol use disorder, moderate, in early remission: Status: Acute Code(s): F10.21 - Alcohol dependence, in remission Plan Reviewed medication potential side effects and need for ongoing follow-up. Patient's lithium level 0.81 kidney function thyroid function unremarkable Reviewed medications and treatment plan with patient follow-up schedule patient future oriented and stable encourage recovery Discussed interaction of bipolar disorder and alcoholism Patient educated on: medication risk/benefits and substance abuse Informed Consent: understands Reason for contiued partial hosp. stay Substantial Risk for: stable for discharge Certification I certify that partial hospital treatment is medically necessary due to the symptoms and problems resulting from the patient's mental illness and the failure to treat the patient at the partial hospital level of care would likely result in the patient requiring inpatient psychiatric care which could not be prevented at a less intensive level of care. Total time managing care of this patient today _25___ minutes. Discharge Plan Discharge Attending provider: Dick Cardenas Additional Instructions: Walt discharged from [facility] services on March 27, 2023 and will be stepping down to lower level of care. Walt will continue with his OP provider and Med provider that he recently received through [facility] Walt was referred to an OP therapist through [facility] in [place]. [facility] provided a scheduled appointment of April 02, 2023 at 10 AM with Lee Ann Villegas. Walt had mentioned that he had made plans for the long weekend and will reach out to [facility] to reschedule that appointment. Watl's med provider meeting was scheduled for May 01, 2023 at 5 PM with Fan Meyer. Medications: Continued hydroxyzine pamoate 50 mg capsule 1 cap PO BEDTIME 30 Days Qty: 30 0RF mirtazapine [Remeron] 15 mg Tablet 7.5 mg PO BEDTIME 30 Days Qty: 30 1RF Rx Instructions: Take 1/2 tablet at HS. lithium carbonate 600 mg Capsule 600 mg PO BEDTIME 30 Days Qty: 30 0RF Changed hydroxyzine pamoate 25 mg Capsule 25 mg PO DAILY PRN (Reason: Anxiety) 30 Days Qty: 15 1RF Stand Alone Forms: Patient Portal Discharge page Patient Education: Bipolar Disorder (ED), Bipolar Disorder (GEN)
--- NOTE | 2023-03-27 14:12 | PC.NURSE ---
Patient discharged today, 03/27/2023. Patient reports he is ready for discharge, denies SI/HI. Discharge plan including discharge medications reviewed with patient who verbalized understanding. Patient seen by Dr Padilla for medication/discharge appointment. Discharge medication list faxed to patient's PCP, Jennifer Mckeon D.O. with request that PCP manage patient's medications as he does not yet have a med provider. [employer] is trying to place patient with a medication provider.
--- NOTE | 2023-03-27 16:31 | HO.PHP ---
PHP staff received a VM and email from Lor from [facility] setting up an appointment with Rose Marie Donovan for April 04 at 9 AM for Walt to receive OP level of services. Lor asked in the email what Walt's insurance is, PHP staff responded Via email what his insurance is and is awaiting a response back.
--- NOTE | 2023-03-27 16:34 | HO.PHP ---
[facility] staff met with Walt and informed him of his upcoming appointment with [facility]. Walt was receptive.
--- NOTE | 2023-03-27 16:34 | HO.PHP ---
PHP staff received an email response back from oLr from [facility] stating that she is cancelling the appointment for Walt since that provider does not take his insurance. [facility] staff responded disclosing that she will inform Walt to disregard the appointment. [facility] staff asked if they could use his [facility] standard instead. [facility] staff is awaiting a response.
--- NOTE | 2023-03-27 16:36 | HO.PHP ---
[facility] staff informed Walt that there was some miscommunication and unfortunately [facility] is unable to take him as a client due to his insurance. PHP staff met with Walt around other places to refer to. Walt wanted to be in [place] but did not know of anyone specific. [facility] staff stated that there are limited providers and asked him if he would be open to exploring outside the area. Walt was hesitant. PHP staff asked about [facility], in which he stated he didn't want to go there due to his having a bad experience at the one in [place]. PHP staff asked if he would be open to going to another location for [facility], in which he was. Walt completed the [facility] for [facility] in [place].
--- NOTE | 2023-03-27 16:39 | HO.PHP ---
PHP staff completed the referral for [facility] and faxed the information over. PHP staff is awaiting a response back.
--- NOTE | 2023-03-27 16:39 | HO.PHP ---
PHP staff received a phone call from Giuliana from [facility], in which she was exploring if the discharge date was correct on the paperwork. PHP staff disclosed that it is. Giuliana asked if she would like for her to call her with the appointment or Walt. [facility] staff stated she can contact the client and if she could call stating what the appointment dates were that were provided as a follow up, that would be appreciated. Giuliana was receptive and stated she will call Walt tomorrow and then let me know. [facility] staff was in agreement.
--- NOTE | 2023-03-28 11:16 | HO.PHP ---
PHP staff reached out to Walt to review if he had received a phone call from [facility] regarding appointment times. Walt noted that he has not at this time. [facility] staff voiced that she will follow up with [facility].
--- NOTE | 2023-03-28 14:30 | HO.PHP ---
[facility] staff followed up with [facility] to gather information regarding the referrals that were place and the status on those. The individual I spoke with stated she will follow up with the one who received the referrals to gather the status and will call me back. [facility] staff was receptive.
--- NOTE | 2023-03-29 16:05 | HO.PHP ---
PHP staff followed up with [facility] to see if they were able to schedule an appointment. [facility] staff stated they have a staff member working on it and they will contact me once they scheduled the appointments. [facility] staff was receptive.
--- NOTE | 2023-03-29 16:05 | HO.PHP ---
[facility] staff received a phone call from [facility] providing the appointment times for OP and Med provider. [facility] mentioned the OP therapy appointment is on April 02 at 10 AM and the med provider appointment is May 01, 2023 at 5 PM. [facility] staff was receptive.
--- NOTE | 2023-03-29 16:07 | HO.PHP ---
[facility] staff contacted Walt about the appointments provided to her by [facility]NOTE 2]. Walt was already aware of the psychiatry appointment but stated he didn't know about the OP appointment and is unable to attend that day due to having plans. Walt mentioned that he would contact [facility] 2[facility] to reschedule that appointment and asked the clinician for the phone number. [facility] staff was receptive and provided it to him.
== END 2023-03-28 23:59 | disposition home or self-care (01) ==
LOC: HO.PHPA 10:15
PROVIDERS: Visit Provider Psychiatry & Neurology Psychiatry
DX: F31.9 Bipolar disorder, unspecified (principal); F10.21 Alcohol dependence, in remission; Z79.899 Other long term (current) drug therapy
CPT/HCPCS: 90791; 90853

== ENCOUNTER → 2023-03-28 10:15 | Outpatient (BNV) | payer MEDICARE, MEDICAID, SELFPAY | PROVIDERS: Visit Provider Psychiatry & Neurology Psychiatry | DX: F31.9 Bipolar disorder, unspecified (principal); F10.21 Alcohol dependence, in remission | CPT/HCPCS: 99213 ==